=== PATIENT | female | born 2000 | race Caucasian/White ===

== ENCOUNTER 2022-12-17 15:06 | Emergency (ER) | payer OTHER ==
[~2022-12-17] VITALS: Ht 154.9 cm; Wt 44.5 kg
== END 2022-12-17 17:07 | disposition home or self-care (01) ==
LOC: ER 15:06
DX: S61.300A Unspecified open wound of right index finger with damage to nail, initial encounter (principal); X58.XXXA Exposure to other specified factors, initial encounter; Y93.89 Activity, other specified; Y92.89 Other specified places as the place of occurrence of the external cause; Y99.8 Other external cause status